=== PATIENT | male | born 1935 | race Caucasian/White ===

== ENCOUNTER 2018-02-08 22:29 | Inpatient (IN) | payer OTHER ==
[2018-02-08] MEDS: LEVALBUTEROL (NEB) 1.25 MG/0.5 ML AMP INH (23:41)
[2018-02-08] MEDS: IPRATROPIUM (NEB) 0.5 MG/2.5 ML AMP NEB (23:41)
[2018-02-08 23:47] LABS: ADD MAN DIFF? NO
[2018-02-08 23:50] LABS: ABNORMAL IP MESSAGE 1; BASOPHIL # 0.1 10^3/ul (0.0-0.1); BASOPHILS % 0.7 % (0.0-2.0); EOSINOPHILS # 0.2 10^3/ul (0.0-0.5); EOSINOPHILS % 1.9 % (0.0-7.0); HEMATOCRIT 38.2 % (42.0-52.0); HEMOGLOBIN 12.7 g/dl (14.0-18.0); LYMPHOCYTES # 1.2 10^3/ul (0.8-2.9); MEAN CORPUSCULAR HEMOGLOBIN 29.1 pg (29.0-33.0); MEAN CORPUSCULAR HGB CONC 33.2 g/dl (32.0-37.0); MEAN CORPUSCULAR VOLUME 87.4 fl (82.0-101.0); MEAN PLATELET VOLUME 12.4 fl (7.4-10.4); MONOCYTE # 1.7 10^3/ul (0.3-0.9); MONOCYTES % 16.1 % (0.0-11.0); NEUTROPHIL # 7.5 10^3/ul (1.6-7.5); NEUTROPHILS % 69.9 % (39.0-77.0); PLATELET COUNT 221 10^3/UL (140-415); POSITIVE DIFF @See below; RED BLOOD COUNT 4.37 10^6/ul (4.70-6.10)
[2018-02-08 23:50] LABS: WHITE BLOOD COUNT 10.7 10^3/ul (4.8-10.8)
[2018-02-08] MEDS: ACETAMINOPHEN 325 MG TAB PO (23:56)
[2018-02-09 00:31] LABS: ALANINE AMINOTRANSFERASE 18 IU/L (13-69); ALBUMIN 3.8 g/dl (3.3-4.9); ALBUMIN/GLOBULIN RATIO 0.88; ALKALINE PHOSPHATASE 69 IU/L (42-121); ANION GAP 15 (8-16); ASPARTATE AMINO TRANSFERASE 22 IU/L (15-46); BILIRUBIN,INDIRECT 0.2 mg/dl (0-1.1); BILIRUBIN,TOTAL 0.2 mg/dl (0.2-1.3); BLOOD UREA NITROGEN 33 mg/dl (7-20); CALCIUM 9.3 mg/dl (8.4-10.2); CARBON DIOXIDE 28 mmol/L (21-31); CHLORIDE 98 mmol/L (97-110); CREATININE 1.62 mg/dl (0.61-1.24); GLUCOSE 105 mg/dl (70-220); POTASSIUM 3.3 mmol/L (3.5-5.1); SODIUM 138 mmol/L (135-144); TOTAL PROTEIN 8.1 g/dl (6.1-8.1)
[2018-02-09 00:32] LABS: LACTIC ACID 1.4 mmol/L (0.5-2.0)
[2018-02-09 00:34] LABS: URINE PH (Dip) POC 5.5 (5.0-8.5)
[2018-02-09 00:34] LABS: URINE BLOOD (Dip) POC 2+ (NEGATIVE); URINE GLUCOSE (Dip) POC Negative (NEGATIVE); URINE KETONES (Dip) POC Negative (NEGATIVE); URINE LEUKOCYTE EST (Dip) POC Negative (NEGATIVE); URINE NITRITE (Dip) POC Negative (NEGATIVE); URINE TOTAL PROTEIN POC Negative (NEGATIVE)
[2018-02-09 00:40] LABS: PROTIME 13.3 Sec (11.9-14.9)
[2018-02-09 00:41] LABS: PARTIAL THROMBOPLASTIN TIME 33.7 Sec (25.0-35.0)
[2018-02-09 00:43] LABS: TROPONIN-I < 0.012 ng/ml (0.00-0.12)
[2018-02-09 01:25] LABS: ADD UMIC YES; UR ASCORBIC ACID NEGATIVE (NEGATIVE); UR BILIRUBIN (Dip) NEGATIVE (NEGATIVE); UR BLOOD (Dip) 2+ mg/dL (NEGATIVE); UR CLARITY CLEAR (CLEAR); UR COLOR YELLOW (YELLOW); UR GLUCOSE (Dip) NEGATIVE (NEGATIVE); UR KETONES (Dip) NEGATIVE (NEGATIVE); UR LEUKOCYTE ESTERASE (Dip) NEGATIVE Leu/ul (NEGATIVE); UR NITRITE (Dip) NEGATIVE (NEGATIVE); UR RBC 12 /HPF (0-5); UR SPECIFIC GRAVITY (Dip) 1.018 (1.003-1.030); UR TOTAL PROTEIN (Dip) NEGATIVE (NEGATIVE); UR UROBILINOGEN (Dip) NEGATIVE (NEGATIVE); UR WBC 0 /HPF (0-5)
[2018-02-09] MEDS: SOD CHLORIDE 0.9% 500 ML IV ×3 (01:47→07:41)
[2018-02-09 02:13] LABS: LACTIC ACID 1.7 mmol/L (0.5-2.0)
[2018-02-09] MEDS: IPRATROPIUM (NEB) 0.5 MG/2.5 ML AMP NEB (02:20)
[2018-02-09] MEDS: LEVALBUTEROL (NEB) 1.25 MG/0.5 ML AMP INH (02:20)
[2018-02-09] MEDS ORDERED: BISACODYL (EC) 5 MG TAB PO (02:30)
[2018-02-09] MEDS ORDERED: NACL 0.9% 3 ML SYG IV (02:30)
[2018-02-09] MEDS ORDERED: ONDANSETRON 4 MG INJ IV (02:30)
[2018-02-09] MEDS ORDERED: DOCUSATE SODIUM 100 MG CAP PO (02:30)
[2018-02-09] MEDS ORDERED: LEVOFLOXACIN 750 MG TABLET PO (02:30)
[2018-02-09] MEDS: POTASSIUM CHLORIDE (SR) 10 MEQ TAB PO (03:36)
[2018-02-09] MEDS: LEVOFLOXACIN 750MG/D5W (PMX) 150 ML IVPB (03:36)
[2018-02-09] MEDS: SOD CHLORIDE 0.9% 1,000 ML IV (03:36)
[2018-02-09 06:11] LABS: ADD MAN DIFF? NO
[2018-02-09 06:13] LABS: BASOPHIL # 0.1 10^3/ul (0.0-0.1); BASOPHILS % 0.7 % (0.0-2.0); EOSINOPHILS % 0.3 % (0.0-7.0); HEMATOCRIT 33.3 % (42.0-52.0); LYMPHOCYTES # 1.1 10^3/ul (0.8-2.9); LYMPHOCYTES % 11.9 % (15.0-51.0); MEAN CORPUSCULAR HEMOGLOBIN 28.9 pg (29.0-33.0); MEAN CORPUSCULAR VOLUME 87.4 fl (82.0-101.0); MEAN PLATELET VOLUME 11.9 fl (7.4-10.4); MONOCYTE # 1.4 10^3/ul (0.3-0.9); MONOCYTES % 15.3 % (0.0-11.0); NEUTROPHIL # 6.3 10^3/ul (1.6-7.5); NEUTROPHILS % 71.3 % (39.0-77.0); PLATELET COUNT 200 10^3/UL (140-415); RED BLOOD COUNT 3.81 10^6/ul (4.70-6.10); RED CELL DISTRIBUTION WIDTH 14.3 % (11.5-14.5)
[2018-02-09 06:13] LABS: WHITE BLOOD COUNT 8.8 10^3/ul (4.8-10.8)
[2018-02-09] MEDS ORDERED: GLUCAGON 1 MG INJ IM (06:30)
[2018-02-09] MEDS ORDERED: DEXTROSE 50% 50 ML SYRINGE IV ×2 (06:30)
[2018-02-09] MEDS ORDERED: GLUCOSE GEL 15 GRAM TUBE PO ×2 (06:30)
[2018-02-09] MEDS ORDERED: GLUCOSE GEL 15 GRAM TUBE BUCCAL (06:30)
[2018-02-09 06:34] LABS: MAGNESIUM 1.3 mg/dl (1.7-2.5)
[2018-02-09 06:36] LABS: LACTIC ACID 3.6 mmol/L (0.5-2.0)
[2018-02-09 06:37] LABS: ALANINE AMINOTRANSFERASE 15 IU/L (13-69); ALBUMIN 3.3 g/dl (3.3-4.9); ALBUMIN/GLOBULIN RATIO 0.89; ALKALINE PHOSPHATASE 53 IU/L (42-121); ANION GAP 18 (8-16); ASPARTATE AMINO TRANSFERASE 18 IU/L (15-46); BILIRUBIN,INDIRECT 0.2 mg/dl (0-1.1); BILIRUBIN,TOTAL 0.2 mg/dl (0.2-1.3); BLOOD UREA NITROGEN 27 mg/dl (7-20); CALCIUM 8.9 mg/dl (8.4-10.2); CARBON DIOXIDE 24 mmol/L (21-31); CHLORIDE 102 mmol/L (97-110); GLUCOSE 109 mg/dl (70-220); POTASSIUM 3.2 mmol/L (3.5-5.1); SODIUM 141 mmol/L (135-144)
[2018-02-09 06:53] LABS: HEMOGLOBIN A1C 5.6 % (0-5.9)
[2018-02-09] MEDS: PANTOPRAZOLE (EC) 40 MG TAB PO (07:01)
[2018-02-09] MEDS: POTASSIUM CHLORIDE (SR) 20 MEQ TAB PO (07:56)
[2018-02-09] MEDS: MAGNESIUM SULFATE 2 GM/50 ML 50 ML IVPB (07:58)
[2018-02-09] MEDS: INSULIN ASPART [NOVOLOG] 3 ML PEN SC ×4 (08:00→20:21)
[2018-02-09] MEDS: LEVALBUTEROL (NEB) 0.63 MG/3 ML AMP HHN ×5 (08:04→19:24)
[2018-02-09] MEDS: ACETYLCYSTEINE 20% 4 ML VIAL NEB (08:06)
[2018-02-09] MEDS: predniSONE 20 MG TAB PO (08:48)
[2018-02-09] MEDS ORDERED: HYDROCHLOROTHIAZIDE 25 MG TAB PO (09:00)
[2018-02-09] MEDS: AZITHROMYCIN 500MG/NS (PMX) 250 ML IVPB (10:47)
[2018-02-09] MEDS: CEFTRIAXONE 1 GM/50 ML (PMX) 50 ML IVPB (11:49)
[2018-02-09] MEDS: GUAIFENESIN/DM 5ML CUP PO (22:46)
[2018-02-10] MEDS: ACCU-CHEK XX (01:20)
[2018-02-10] MEDS: LEVALBUTEROL (NEB) 0.63 MG/3 ML AMP HHN ×6 (02:10→21:00)
[2018-02-10] MEDS: PANTOPRAZOLE (EC) 40 MG TAB PO (06:18)
[2018-02-10] MEDS: INSULIN ASPART [NOVOLOG] 3 ML PEN SC ×4 (08:00→20:10)
[2018-02-10] MEDS: predniSONE 20 MG TAB PO (10:30)
[2018-02-10] MEDS: AZITHROMYCIN 500MG/NS (PMX) 250 ML IVPB (10:31)
[2018-02-10] MEDS: CEFTRIAXONE 1 GM/50 ML (PMX) 50 ML IVPB (11:33)
[2018-02-10] MEDS: GUAIFENESIN/DM 5ML CUP PO ×2 (11:57→20:06)
[2018-02-10] MEDS: ACETAMINOPHEN 325 MG TAB PO (11:57)
[2018-02-10] MEDS: FUROSEMIDE 20 MG INJ IV (14:29)
[2018-02-11] MEDS: ACCU-CHEK XX (01:24)
[2018-02-11] MEDS: LEVALBUTEROL (NEB) 0.63 MG/3 ML AMP HHN ×6 (01:30→19:03)
[2018-02-11] MEDS: GUAIFENESIN/DM 5ML CUP PO ×3 (01:50→17:38)
[2018-02-11] MEDS ORDERED: LEVOFLOXACIN 750MG/D5W (PMX) 150 ML IVPB ×2 (02:30)
[2018-02-11] MEDS: IPRATROPIUM (NEB) 0.5 MG/2.5 ML AMP HHN ×2 (04:22→13:24)
[2018-02-11] MEDS: PANTOPRAZOLE (EC) 40 MG TAB PO (05:22)
[2018-02-11] MEDS: INSULIN ASPART [NOVOLOG] 3 ML PEN SC ×4 (08:00→20:44)
[2018-02-11] MEDS: predniSONE 20 MG TAB PO (08:29)
[2018-02-11] MEDS: CEFTRIAXONE 1 GM/50 ML (PMX) 50 ML IVPB (10:06)
[2018-02-11] MEDS: ACETAMINOPHEN 325 MG TAB PO (10:35)
[2018-02-11] MEDS: AZITHROMYCIN 500MG/NS (PMX) 250 ML IVPB (11:28)
[2018-02-11 12:27] LABS: ADD MAN DIFF? NO
[2018-02-11 12:39] LABS: WHITE BLOOD COUNT 8.6 10^3/ul (4.8-10.8)
[2018-02-11 12:39] LABS: ABNORMAL IP MESSAGE 1; BASOPHILS % 0.4 % (0.0-2.0); HEMATOCRIT 35.8 % (42.0-52.0); LYMPHOCYTES # 0.6 10^3/ul (0.8-2.9); LYMPHOCYTES % 6.7 % (15.0-51.0); MEAN CORPUSCULAR HEMOGLOBIN 29.4 pg (29.0-33.0); MEAN CORPUSCULAR HGB CONC 33.5 g/dl (32.0-37.0); MEAN CORPUSCULAR VOLUME 87.7 fl (82.0-101.0); MEAN PLATELET VOLUME 12.5 fl (7.4-10.4); MONOCYTE # 0.8 10^3/ul (0.3-0.9); MONOCYTES % 9.6 % (0.0-11.0); NEUTROPHIL # 7.1 10^3/ul (1.6-7.5); NEUTROPHILS % 82.9 % (39.0-77.0); PLATELET COUNT 205 10^3/UL (140-415); POSITIVE DIFF @See below; RED BLOOD COUNT 4.08 10^6/ul (4.70-6.10); RED CELL DISTRIBUTION WIDTH 14.6 % (11.5-14.5)
[2018-02-11 12:55] LABS: ALANINE AMINOTRANSFERASE 24 IU/L (13-69); ALBUMIN 3.6 g/dl (3.3-4.9); ALBUMIN/GLOBULIN RATIO 0.83; ALKALINE PHOSPHATASE 54 IU/L (42-121); ANION GAP 19 (8-16); ASPARTATE AMINO TRANSFERASE 62 IU/L (15-46); BLOOD UREA NITROGEN 43 mg/dl (7-20); CALCIUM 9.3 mg/dl (8.4-10.2); CARBON DIOXIDE 25 mmol/L (21-31); CHLORIDE 103 mmol/L (97-110); CREATININE 1.79 mg/dl (0.61-1.24); GLUCOSE 129 mg/dl (70-220); MAGNESIUM 1.5 mg/dl (1.7-2.5); POTASSIUM 3.2 mmol/L (3.5-5.1); SODIUM 144 mmol/L (135-144); TOTAL PROTEIN 7.9 g/dl (6.1-8.1)
[2018-02-11 12:58] LABS: LACTIC ACID 2.4 mmol/L (0.5-2.0)
[2018-02-11] MEDS: METHYLPREDNISOLONE 40 MG INJ IV ×3 (14:32→23:10)
[2018-02-11] MEDS: MAGNESIUM SULFATE 2 GM/50 ML 50 ML IVPB (14:36)
[2018-02-11] MEDS: POTASSIUM CHLORIDE (SR) 20 MEQ TAB PO (17:27)
[2018-02-11] MEDS: POTASSIUM CHLORIDE 10 MEQ in SOD CHLORIDE 0.45% 1,000 ML IV ×2 (17:37→23:13)
[2018-02-11] MEDS: HEPARIN 5,000 UNIT/0.5 ML VIAL SC (20:43)
[2018-02-12] MEDS: LEVALBUTEROL (NEB) 0.63 MG/3 ML AMP HHN ×4 (01:38→19:19)
[2018-02-12] MEDS: ACCU-CHEK XX (02:08)
[2018-02-12] MEDS: POTASSIUM CHLORIDE 10 MEQ in SOD CHLORIDE 0.45% 1,000 ML IV ×3 (03:03→20:09)
[2018-02-12] MEDS: METHYLPREDNISOLONE 40 MG INJ IV ×3 (05:35→20:40)
[2018-02-12] MEDS: PANTOPRAZOLE (EC) 40 MG TAB PO (05:35)
[2018-02-12] MEDS: IPRATROPIUM (NEB) 0.5 MG/2.5 ML AMP HHN ×2 (08:05→14:37)
[2018-02-12] MEDS: INSULIN ASPART [NOVOLOG] 3 ML PEN SC ×4 (08:17→20:40)
[2018-02-12] MEDS: HEPARIN 5,000 UNIT/0.5 ML VIAL SC ×2 (08:17→20:42)
[2018-02-12 09:08] LABS: ADD MAN DIFF? NO
[2018-02-12 09:18] LABS: BASOPHILS % 0.1 % (0.0-2.0); HEMATOCRIT 39.4 % (42.0-52.0); HEMOGLOBIN 12.9 g/dl (14.0-18.0); LYMPHOCYTES # 0.8 10^3/ul (0.8-2.9); LYMPHOCYTES % 6.5 % (15.0-51.0); MEAN CORPUSCULAR HEMOGLOBIN 28.6 pg (29.0-33.0); MEAN CORPUSCULAR HGB CONC 32.7 g/dl (32.0-37.0); MEAN CORPUSCULAR VOLUME 87.4 fl (82.0-101.0); MEAN PLATELET VOLUME 12.2 fl (7.4-10.4); MONOCYTE # 0.6 10^3/ul (0.3-0.9); MONOCYTES % 4.2 % (0.0-11.0); NEUTROPHIL # 11.5 10^3/ul (1.6-7.5); NEUTROPHILS % 88.7 % (39.0-77.0); PLATELET COUNT 208 10^3/UL (140-415); RED BLOOD COUNT 4.51 10^6/ul (4.70-6.10); RED CELL DISTRIBUTION WIDTH 14.6 % (11.5-14.5)
[2018-02-12 09:50] LABS: ANION GAP 15 (8-16); BLOOD UREA NITROGEN 40 mg/dl (7-20); CALCIUM 9.5 mg/dl (8.4-10.2); CARBON DIOXIDE 27 mmol/L (21-31); CHLORIDE 105 mmol/L (97-110); GLUCOSE 168 mg/dl (70-220); POTASSIUM 3.3 mmol/L (3.5-5.1); SODIUM 144 mmol/L (135-144)
[2018-02-12 10:16] LABS: MAGNESIUM 1.9 mg/dl (1.7-2.5)
[2018-02-12] MEDS: CEFTRIAXONE 1 GM/50 ML (PMX) 50 ML IVPB (10:20)
[2018-02-12] MEDS: AZITHROMYCIN 500MG/NS (PMX) 250 ML IVPB (11:42)
[2018-02-12] MEDS: POTASSIUM CHLORIDE (SR) 20 MEQ TAB PO (12:52)
[2018-02-13] MEDS: LEVALBUTEROL (NEB) 0.63 MG/3 ML AMP HHN ×4 (01:36→20:08)
[2018-02-13] MEDS: ACCU-CHEK XX (02:00)
[2018-02-13] MEDS: POTASSIUM CHLORIDE 10 MEQ in SOD CHLORIDE 0.45% 1,000 ML IV ×3 (03:49→16:44)
[2018-02-13] MEDS: METHYLPREDNISOLONE 40 MG INJ IV ×3 (03:56→20:59)
[2018-02-13] MEDS: PANTOPRAZOLE (EC) 40 MG TAB PO (05:22)
[2018-02-13] MEDS: INSULIN ASPART [NOVOLOG] 3 ML PEN SC ×4 (08:25→21:00)
[2018-02-13] MEDS: HEPARIN 5,000 UNIT/0.5 ML VIAL SC ×2 (08:26→20:59)
[2018-02-13] MEDS: AZITHROMYCIN 500MG/NS (PMX) 250 ML IVPB (10:14)
[2018-02-13 10:32] LABS: ADD MAN DIFF? NO
[2018-02-13 10:34] LABS: WHITE BLOOD COUNT 18.9 10^3/ul (4.8-10.8)
[2018-02-13 10:34] LABS: BASOPHILS % 0.1 % (0.0-2.0); HEMATOCRIT 37.9 % (42.0-52.0); HEMOGLOBIN 12.6 g/dl (14.0-18.0); LYMPHOCYTES # 1.1 10^3/ul (0.8-2.9); LYMPHOCYTES % 5.7 % (15.0-51.0); MEAN CORPUSCULAR HEMOGLOBIN 29.1 pg (29.0-33.0); MEAN CORPUSCULAR HGB CONC 33.2 g/dl (32.0-37.0); MEAN CORPUSCULAR VOLUME 87.5 fl (82.0-101.0); MEAN PLATELET VOLUME 12.9 fl (7.4-10.4); MONOCYTE # 0.6 10^3/ul (0.3-0.9); MONOCYTES % 3.4 % (0.0-11.0); NEUTROPHIL # 17.1 10^3/ul (1.6-7.5); NEUTROPHILS % 90.3 % (39.0-77.0); PLATELET COUNT 220 10^3/UL (140-415); RED BLOOD COUNT 4.33 10^6/ul (4.70-6.10); RED CELL DISTRIBUTION WIDTH 14.6 % (11.5-14.5)
[2018-02-13 11:08] LABS: ANION GAP 18 (8-16); BLOOD UREA NITROGEN 40 mg/dl (7-20); CALCIUM 9.4 mg/dl (8.4-10.2); CARBON DIOXIDE 22 mmol/L (21-31); CHLORIDE 105 mmol/L (97-110); CREATININE 1.37 mg/dl (0.61-1.24); GLUCOSE 146 mg/dl (70-220); POTASSIUM 3.1 mmol/L (3.5-5.1); SODIUM 142 mmol/L (135-144)
[2018-02-13] MEDS: CEFTRIAXONE 1 GM/50 ML (PMX) 50 ML IVPB (11:34)
[2018-02-13] MEDS: POTASSIUM CHLORIDE (SR) 20 MEQ TAB PO (13:37)
[2018-02-14] MEDS: LEVALBUTEROL (NEB) 0.63 MG/3 ML AMP HHN ×4 (01:06→20:50)
[2018-02-14] MEDS: ACCU-CHEK XX (02:00)
[2018-02-14] MEDS: POTASSIUM CHLORIDE 10 MEQ in SOD CHLORIDE 0.45% 1,000 ML IV ×3 (03:13→22:24)
[2018-02-14] MEDS: METHYLPREDNISOLONE 40 MG INJ IV ×3 (05:40→20:43)
[2018-02-14] MEDS: PANTOPRAZOLE (EC) 40 MG TAB PO (05:40)
[2018-02-14] MEDS: INSULIN ASPART [NOVOLOG] 3 ML PEN SC ×4 (08:00→20:43)
[2018-02-14] MEDS: HEPARIN 5,000 UNIT/0.5 ML VIAL SC ×2 (08:20→20:44)
[2018-02-14] MEDS: AZITHROMYCIN 500MG/NS (PMX) 250 ML IVPB (09:46)
[2018-02-14] MEDS: CEFTRIAXONE 1 GM/50 ML (PMX) 50 ML IVPB (11:17)
[2018-02-15] MEDS: ACCU-CHEK XX (02:00)
[2018-02-15] MEDS: LEVALBUTEROL (NEB) 0.63 MG/3 ML AMP HHN ×4 (02:36→19:45)
[2018-02-15] MEDS: METHYLPREDNISOLONE 40 MG INJ IV ×3 (03:10→22:15)
[2018-02-15] MEDS: POTASSIUM CHLORIDE 10 MEQ in SOD CHLORIDE 0.45% 1,000 ML IV ×3 (05:32→18:30)
[2018-02-15] MEDS: PANTOPRAZOLE (EC) 40 MG TAB PO (05:32)
[2018-02-15] MEDS: INSULIN ASPART [NOVOLOG] 3 ML PEN SC ×4 (08:31→21:00)
[2018-02-15] MEDS: HEPARIN 5,000 UNIT/0.5 ML VIAL SC ×2 (08:32→22:17)
[2018-02-15] MEDS: CEFTRIAXONE 1 GM/50 ML (PMX) 50 ML IVPB (11:24)
[2018-02-15] MEDS: AZITHROMYCIN 500MG/NS (PMX) 250 ML IVPB (11:24)
[2018-02-15] MEDS: GUAIFENESIN/DM 5ML CUP PO (12:19)
[2018-02-16] MEDS: ACCU-CHEK XX (02:00)
[2018-02-16] MEDS: LEVALBUTEROL (NEB) 0.63 MG/3 ML AMP HHN ×2 (02:04→08:00)
[2018-02-16] MEDS: METHYLPREDNISOLONE 40 MG INJ IV ×3 (04:53→21:11)
[2018-02-16] MEDS: PANTOPRAZOLE (EC) 40 MG TAB PO (04:53)
[2018-02-16] MEDS: POTASSIUM CHLORIDE 10 MEQ in SOD CHLORIDE 0.45% 1,000 ML IV ×2 (04:53→17:32)
[2018-02-16 07:48] LABS: ADD MAN DIFF? NO
[2018-02-16] MEDS: INSULIN ASPART [NOVOLOG] 3 ML PEN SC ×4 (07:54→21:00)
[2018-02-16 07:57] LABS: BASOPHILS % 0.1 % (0.0-2.0); HEMATOCRIT 34.9 % (42.0-52.0); HEMOGLOBIN 11.7 g/dl (14.0-18.0); LYMPHOCYTES # 0.8 10^3/ul (0.8-2.9); LYMPHOCYTES % 6.4 % (15.0-51.0); MEAN CORPUSCULAR HEMOGLOBIN 28.6 pg (29.0-33.0); MEAN CORPUSCULAR HGB CONC 33.5 g/dl (32.0-37.0); MEAN CORPUSCULAR VOLUME 85.3 fl (82.0-101.0); MEAN PLATELET VOLUME 12.4 fl (7.4-10.4); MONOCYTE # 0.7 10^3/ul (0.3-0.9); MONOCYTES % 5.2 % (0.0-11.0); NEUTROPHIL # 11.5 10^3/ul (1.6-7.5); NEUTROPHILS % 86.7 % (39.0-77.0); PLATELET COUNT 205 10^3/UL (140-415); RED BLOOD COUNT 4.09 10^6/ul (4.70-6.10)
[2018-02-16 07:57] LABS: WHITE BLOOD COUNT 13.2 10^3/ul (4.8-10.8)
[2018-02-16 08:16] LABS: ANION GAP 13 (8-16); BLOOD UREA NITROGEN 40 mg/dl (7-20); CALCIUM 9.1 mg/dl (8.4-10.2); CARBON DIOXIDE 28 mmol/L (21-31); CHLORIDE 106 mmol/L (97-110); CREATININE 1.18 mg/dl (0.61-1.24); GLUCOSE 142 mg/dl (70-220); POTASSIUM 3.6 mmol/L (3.5-5.1); SODIUM 143 mmol/L (135-144)
[2018-02-16] MEDS: ALBUTEROL/IPRATROPIUM (NEB) 3 ML AMP HHN ×3 (08:16→21:00)
[2018-02-16] MEDS: HEPARIN 5,000 UNIT/0.5 ML VIAL SC ×2 (09:07→21:24)
[2018-02-16] MEDS: GUAIFENESIN/DM 5ML CUP PO (09:07)
[2018-02-16] MEDS: AZITHROMYCIN 500MG/NS (PMX) 250 ML IVPB (10:36)
[2018-02-16] MEDS: SALMETEROL/FLUTICASONE 250/50 INHA INH ×2 (10:36→21:09)
[2018-02-16] MEDS: GUAIFENESIN LA 600 MG TABSR PO ×2 (10:36→21:11)
[2018-02-16] MEDS: CEFTRIAXONE 1 GM/50 ML (PMX) 50 ML IVPB (13:42)
[2018-02-17] MEDS: ALBUTEROL/IPRATROPIUM (NEB) 3 ML AMP HHN ×4 (01:30→20:26)
[2018-02-17] MEDS: ACCU-CHEK XX (02:00)
[2018-02-17] MEDS: POTASSIUM CHLORIDE 10 MEQ in SOD CHLORIDE 0.45% 1,000 ML IV ×3 (03:00→17:50)
[2018-02-17] MEDS: METHYLPREDNISOLONE 40 MG INJ IV ×3 (05:00→20:59)
[2018-02-17] MEDS: PANTOPRAZOLE (EC) 40 MG TAB PO (06:07)
[2018-02-17 06:52] LABS: ADD MAN DIFF? NO
[2018-02-17 06:59] LABS: BASOPHILS % 0.2 % (0.0-2.0); HEMATOCRIT 35.8 % (42.0-52.0); HEMOGLOBIN 12.1 g/dl (14.0-18.0); LYMPHOCYTES # 0.8 10^3/ul (0.8-2.9); MEAN CORPUSCULAR HEMOGLOBIN 28.7 pg (29.0-33.0); MEAN CORPUSCULAR HGB CONC 33.8 g/dl (32.0-37.0); MEAN CORPUSCULAR VOLUME 84.8 fl (82.0-101.0); MEAN PLATELET VOLUME 12.7 fl (7.4-10.4); MONOCYTE # 0.8 10^3/ul (0.3-0.9); MONOCYTES % 5.9 % (0.0-11.0); NEUTROPHIL # 11.6 10^3/ul (1.6-7.5); NEUTROPHILS % 85.7 % (39.0-77.0); PLATELET COUNT 215 10^3/UL (140-415); RED BLOOD COUNT 4.22 10^6/ul (4.70-6.10)
[2018-02-17 06:59] LABS: WHITE BLOOD COUNT 13.6 10^3/ul (4.8-10.8)
[2018-02-17 07:24] LABS: ANION GAP 14 (8-16); BLOOD UREA NITROGEN 37 mg/dl (7-20); CALCIUM 9.1 mg/dl (8.4-10.2); CARBON DIOXIDE 25 mmol/L (21-31); CHLORIDE 104 mmol/L (97-110); CREATININE 1.13 mg/dl (0.61-1.24); GLUCOSE 157 mg/dl (70-220); POTASSIUM 3.2 mmol/L (3.5-5.1); SODIUM 140 mmol/L (135-144)
[2018-02-17] MEDS: SALMETEROL/FLUTICASONE 250/50 INHA INH ×2 (08:11→20:59)
[2018-02-17] MEDS: GUAIFENESIN LA 600 MG TABSR PO ×2 (08:11→21:00)
[2018-02-17] MEDS: INSULIN ASPART [NOVOLOG] 3 ML PEN SC ×4 (08:12→21:00)
[2018-02-17] MEDS: HEPARIN 5,000 UNIT/0.5 ML VIAL SC ×2 (08:13→21:04)
[2018-02-17] MEDS: AZITHROMYCIN 500MG/NS (PMX) 250 ML IVPB (10:25)
[2018-02-17] MEDS: CEFTRIAXONE 1 GM/50 ML (PMX) 50 ML IVPB (12:11)
[2018-02-17] MEDS: POTASSIUM CHLORIDE (SR) 20 MEQ TAB PO (17:43)
[2018-02-18] MEDS: ALBUTEROL/IPRATROPIUM (NEB) 3 ML AMP HHN ×4 (01:47→19:56)
[2018-02-18] MEDS: ACCU-CHEK XX (02:00)
[2018-02-18] MEDS: GUAIFENESIN/DM 5ML CUP PO (04:04)
[2018-02-18] MEDS: METHYLPREDNISOLONE 40 MG INJ IV ×3 (04:05→20:00)
[2018-02-18] MEDS: IPRATROPIUM (NEB) 0.5 MG/2.5 ML AMP HHN (04:11)
[2018-02-18] MEDS: PANTOPRAZOLE (EC) 40 MG TAB PO (05:28)
[2018-02-18] MEDS: POTASSIUM CHLORIDE 10 MEQ in SOD CHLORIDE 0.45% 1,000 ML IV (06:23)
[2018-02-18 08:05] LABS: WHITE BLOOD COUNT 13.8 10^3/ul (4.8-10.8)
[2018-02-18 08:05] LABS: ABNORMAL IP MESSAGE 1; HEMATOCRIT 35.1 % (42.0-52.0); HEMOGLOBIN 11.8 g/dl (14.0-18.0); MEAN CORPUSCULAR HEMOGLOBIN 28.5 pg (29.0-33.0); MEAN CORPUSCULAR HGB CONC 33.6 g/dl (32.0-37.0); MEAN CORPUSCULAR VOLUME 84.8 fl (82.0-101.0); MEAN PLATELET VOLUME 12.9 fl (7.4-10.4); PLATELET COUNT 148 10^3/UL (140-415); POSITIVE DIFF @See below; RED BLOOD COUNT 4.14 10^6/ul (4.70-6.10); RED CELL DISTRIBUTION WIDTH 14.5 % (11.5-14.5)
[2018-02-18 08:07] LABS: ADD MAN DIFF? YES
[2018-02-18] MEDS: INSULIN ASPART [NOVOLOG] 3 ML PEN SC ×4 (08:22→21:00)
[2018-02-18] MEDS: HEPARIN 5,000 UNIT/0.5 ML VIAL SC ×2 (08:22→21:22)
[2018-02-18] MEDS: SALMETEROL/FLUTICASONE 250/50 INHA INH ×2 (08:23→21:00)
[2018-02-18] MEDS: GUAIFENESIN LA 600 MG TABSR PO ×2 (08:23→21:26)
[2018-02-18 08:33] LABS: ANION GAP 14 (8-16); BLOOD UREA NITROGEN 40 mg/dl (7-20); CALCIUM 8.8 mg/dl (8.4-10.2); CARBON DIOXIDE 28 mmol/L (21-31); CHLORIDE 102 mmol/L (97-110); CREATININE 1.08 mg/dl (0.61-1.24); GLUCOSE 162 mg/dl (70-220); POTASSIUM 3.4 mmol/L (3.5-5.1); SODIUM 141 mmol/L (135-144)
[2018-02-18 10:02] LABS: BAND NEUTROPHILS #M 0.1 10^3/ul (0.0-0.6); BAND NEUTROPHILS % (M) 1 % (0-4); GIANT THROMBO% (M) 1 % (0-0); LYMPHOCYTES #M 1.1 10^3/ul (0.8-2.9); LYMPHOCYTES % (M) 8 % (15-51); MONOCYTE #M 2.2 10^3/ul (0.3-0.9); MONOCYTES % (M) 16 % (0-11); PLATELET ESTIMATE NORMAL; SEG NEUT #M 10.4 10^3/ul (1.6-7.5); SEGMENTED NEUTROPHILS (M) % 75 % (39-77); SMUDGE%M 13 % (0-0)
[2018-02-18] MEDS: CEFTRIAXONE 1 GM/50 ML (PMX) 50 ML IVPB (10:20)
[2018-02-18] MEDS: AZITHROMYCIN 500MG/NS (PMX) 250 ML IVPB (10:59)
[2018-02-18] MEDS: POTASSIUM CHLORIDE (SR) 20 MEQ TAB PO (16:07)
[2018-02-19] MEDS: ACCU-CHEK XX (01:41)
[2018-02-19] MEDS: ALBUTEROL/IPRATROPIUM (NEB) 3 ML AMP HHN ×3 (01:42→20:00)
[2018-02-19] MEDS: METHYLPREDNISOLONE 40 MG INJ IV ×3 (04:14→22:37)
[2018-02-19] MEDS: PANTOPRAZOLE (EC) 40 MG TAB PO (05:52)
[2018-02-19] MEDS: INSULIN ASPART [NOVOLOG] 3 ML PEN SC ×4 (08:00→20:51)
[2018-02-19] MEDS: HEPARIN 5,000 UNIT/0.5 ML VIAL SC ×2 (08:25→20:52)
[2018-02-19] MEDS: GUAIFENESIN LA 600 MG TABSR PO ×2 (08:25→22:37)
[2018-02-19] MEDS: SALMETEROL/FLUTICASONE 250/50 INHA INH ×2 (08:29→20:48)
[2018-02-19 09:45] LABS: ADD MAN DIFF? NO
[2018-02-19 09:50] LABS: WHITE BLOOD COUNT 15.1 10^3/ul (4.8-10.8)
[2018-02-19 09:50] LABS: ABNORMAL IP MESSAGE 1; BASOPHILS % 0.1 % (0.0-2.0); HEMATOCRIT 38.5 % (42.0-52.0); LYMPHOCYTES # 0.4 10^3/ul (0.8-2.9); LYMPHOCYTES % 2.6 % (15.0-51.0); MEAN CORPUSCULAR HEMOGLOBIN 28.7 pg (29.0-33.0); MEAN CORPUSCULAR HGB CONC 33.8 g/dl (32.0-37.0); MEAN PLATELET VOLUME 12.5 fl (7.4-10.4); MONOCYTE # 0.6 10^3/ul (0.3-0.9); MONOCYTES % 3.7 % (0.0-11.0); NEUTROPHIL # 13.7 10^3/ul (1.6-7.5); NEUTROPHILS % 90.6 % (39.0-77.0); PLATELET COUNT 189 10^3/UL (140-415); POSITIVE DIFF @See below; RED BLOOD COUNT 4.53 10^6/ul (4.70-6.10); RED CELL DISTRIBUTION WIDTH 14.3 % (11.5-14.5)
[2018-02-19 10:13] LABS: CREATINE KINASE 92 IU/L (23-200)
[2018-02-19 10:19] LABS: CHOLESTEROL 150 mg/dl (100-200); HDL CHOLESTEROL 72 mg/dl (31-75); LDL CHOLESTEROL,CALCULATED 63 mg/dl; MAGNESIUM 1.4 mg/dl (1.7-2.5); TRIGLYCERIDES 77 mg/dl (0-149)
[2018-02-19 10:23] LABS: B-TYPE NATRIURETIC PEPTIDE 3580 PG/ML (0-450)
[2018-02-19 10:24] LABS: CK INDEX 3.7; TROPONIN-I 0.038 ng/ml (0.00-0.12)
[2018-02-19 10:29] LABS: FREE T4 (FREE THYROXINE) 1.84 ng/dl (0.85-1.93)
[2018-02-19] MEDS: AZITHROMYCIN 500MG/NS (PMX) 250 ML IVPB (10:35)
[2018-02-19 10:40] LABS: ANION GAP 15 (8-16); BLOOD UREA NITROGEN 42 mg/dl (7-20); CALCIUM 9.2 mg/dl (8.4-10.2); CARBON DIOXIDE 27 mmol/L (21-31); CHLORIDE 103 mmol/L (97-110); CREATININE 1.19 mg/dl (0.61-1.24); GLUCOSE 174 mg/dl (70-220); POTASSIUM 3.7 mmol/L (3.5-5.1); SODIUM 141 mmol/L (135-144)
[2018-02-19 10:41] LABS: ALANINE AMINOTRANSFERASE 38 IU/L (13-69); ALBUMIN 2.8 g/dl (3.3-4.9); ALBUMIN/GLOBULIN RATIO 0.82; ALKALINE PHOSPHATASE 57 IU/L (42-121); ANION GAP 16 (8-16); ASPARTATE AMINO TRANSFERASE 21 IU/L (15-46); BILIRUBIN,INDIRECT 0.7 mg/dl (0-1.1); BILIRUBIN,TOTAL 0.7 mg/dl (0.2-1.3); BLOOD UREA NITROGEN 43 mg/dl (7-20); CARBON DIOXIDE 25 mmol/L (21-31); CHLORIDE 103 mmol/L (97-110); CREATININE 1.14 mg/dl (0.61-1.24); GLUCOSE 180 mg/dl (70-220); POTASSIUM 3.8 mmol/L (3.5-5.1); SODIUM 140 mmol/L (135-144); TOTAL PROTEIN 6.2 g/dl (6.1-8.1)
[2018-02-19] MEDS: CEFTRIAXONE 1 GM/50 ML (PMX) 50 ML IVPB (11:40)
[2018-02-19] MEDS: MAGNESIUM SULFATE 3 GM in DEXTROSE 5% 100 ML IVPB (14:58)
[2018-02-19] MEDS ORDERED: MAGNESIUM SULFATE 4 GM/100 ML 100 ML IVPB (16:30)
[2018-02-19] MEDS: POTASSIUM CHLORIDE (SR) 20 MEQ TAB PO (16:40)
[2018-02-19] MEDS: MAGNESIUM SULFATE 1 GM/D5W 100 ML IVPB (19:01)
[2018-02-19] MEDS: GUAIFENESIN/DM 5ML CUP PO (20:48)
[2018-02-19] MEDS: CEFEPIME 1GM/50 ML (PMX) 50 ML IVPB (20:49)
[2018-02-20] MEDS: ACCU-CHEK XX (02:00)
[2018-02-20] MEDS: ALBUTEROL/IPRATROPIUM (NEB) 3 ML AMP HHN ×4 (02:31→21:04)
[2018-02-20] MEDS: PANTOPRAZOLE (EC) 40 MG TAB PO (05:21)
[2018-02-20] MEDS: METHYLPREDNISOLONE 40 MG INJ IV ×3 (05:21→21:37)
[2018-02-20] MEDS: GUAIFENESIN/DM 5ML CUP PO (05:40)
[2018-02-20] MEDS: INSULIN ASPART [NOVOLOG] 3 ML PEN SC ×4 (08:00→20:39)
[2018-02-20] MEDS: SALMETEROL/FLUTICASONE 250/50 INHA INH ×2 (08:18→20:26)
[2018-02-20] MEDS: GUAIFENESIN LA 600 MG TABSR PO ×2 (08:18→20:40)
[2018-02-20] MEDS: CEFEPIME 1GM/50 ML (PMX) 50 ML IVPB ×2 (08:19→20:37)
[2018-02-20] MEDS: HEPARIN 5,000 UNIT/0.5 ML VIAL SC ×2 (08:20→20:38)
[2018-02-20 08:50] LABS: ADD MAN DIFF? NO
[2018-02-20 08:55] LABS: ABNORMAL IP MESSAGE 1; BASOPHILS % 0.1 % (0.0-2.0); HEMATOCRIT 37.5 % (42.0-52.0); HEMOGLOBIN 12.7 g/dl (14.0-18.0); LYMPHOCYTES # 0.5 10^3/ul (0.8-2.9); LYMPHOCYTES % 3.1 % (15.0-51.0); MEAN CORPUSCULAR HEMOGLOBIN 28.7 pg (29.0-33.0); MEAN CORPUSCULAR HGB CONC 33.9 g/dl (32.0-37.0); MEAN CORPUSCULAR VOLUME 84.7 fl (82.0-101.0); MEAN PLATELET VOLUME 12.8 fl (7.4-10.4); MONOCYTES % 6.7 % (0.0-11.0); NEUTROPHIL # 13.1 10^3/ul (1.6-7.5); NEUTROPHILS % 87.6 % (39.0-77.0); PLATELET COUNT 191 10^3/UL (140-415); POSITIVE DIFF @See below; RED BLOOD COUNT 4.43 10^6/ul (4.70-6.10); RED CELL DISTRIBUTION WIDTH 14.2 % (11.5-14.5)
[2018-02-20 09:24] LABS: ANION GAP 14 (8-16); BLOOD UREA NITROGEN 47 mg/dl (7-20); CALCIUM 8.8 mg/dl (8.4-10.2); CARBON DIOXIDE 28 mmol/L (21-31); CHLORIDE 101 mmol/L (97-110); CREATININE 1.14 mg/dl (0.61-1.24); GLUCOSE 146 mg/dl (70-220); POTASSIUM 3.5 mmol/L (3.5-5.1); SODIUM 139 mmol/L (135-144)
[2018-02-20 09:27] LABS: PHOSPHORUS 4.2 mg/dl (2.5-4.9)
[2018-02-20 09:37] LABS: FREE T4 (FREE THYROXINE) 1.62 ng/dl (0.85-1.93)
[2018-02-20 09:53] LABS: THYROID STIMULATING HORMONE 0.076 MIU/L (0.465-4.680)
[2018-02-20 15:58] LABS: Allen Test ACCEPTAB; Arterial Base Excess -0.1 mmol/L (-3.0-3); Arterial Blood Gas Oxygen Sat 95.5 mmHG (95.0-100.0); Arterial COHb 0.1 % (0.0-3.0); Arterial HCO3 22.4 mmol/L (22.0-26.0); Arterial MetHb 0.4 % (0.0-1.5); Arterial Total Hemglobin 13.8 g/dl (12.0-18.0); Arterial pCO2 30.8 mmhg (35-45); MODE ROOM AIR; Site Left Radial
[2018-02-21] MEDS: ACCU-CHEK XX (02:00)
[2018-02-21] MEDS: ALBUTEROL/IPRATROPIUM (NEB) 3 ML AMP HHN ×3 (02:16→14:07)
[2018-02-21] MEDS: PANTOPRAZOLE (EC) 40 MG TAB PO (05:28)
[2018-02-21] MEDS: METHYLPREDNISOLONE 40 MG INJ IV (05:28)
[2018-02-21 05:44] LABS: ADD MAN DIFF? NO
[2018-02-21 05:47] LABS: WHITE BLOOD COUNT 13.2 10^3/ul (4.8-10.8)
[2018-02-21 05:47] LABS: ABNORMAL IP MESSAGE 1; BASOPHILS % 0.2 % (0.0-2.0); HEMATOCRIT 35.3 % (42.0-52.0); HEMOGLOBIN 12.2 g/dl (14.0-18.0); LYMPHOCYTES # 0.3 10^3/ul (0.8-2.9); LYMPHOCYTES % 2.2 % (15.0-51.0); MEAN CORPUSCULAR HEMOGLOBIN 29.2 pg (29.0-33.0); MEAN CORPUSCULAR HGB CONC 34.6 g/dl (32.0-37.0); MEAN CORPUSCULAR VOLUME 84.4 fl (82.0-101.0); MEAN PLATELET VOLUME 12.5 fl (7.4-10.4); MONOCYTE # 0.5 10^3/ul (0.3-0.9); MONOCYTES % 3.7 % (0.0-11.0); NEUTROPHIL # 12.1 10^3/ul (1.6-7.5); NEUTROPHILS % 91.9 % (39.0-77.0); PLATELET COUNT 174 10^3/UL (140-415); POSITIVE DIFF @See below; RED BLOOD COUNT 4.18 10^6/ul (4.70-6.10); RED CELL DISTRIBUTION WIDTH 14.5 % (11.5-14.5)
[2018-02-21 06:15] LABS: ALANINE AMINOTRANSFERASE 37 IU/L (13-69); ALBUMIN 2.4 g/dl (3.3-4.9); ALKALINE PHOSPHATASE 51 IU/L (42-121); ANION GAP 11 (8-16); ASPARTATE AMINO TRANSFERASE 17 IU/L (15-46); BILIRUBIN,INDIRECT 0.8 mg/dl (0-1.1); BILIRUBIN,TOTAL 0.8 mg/dl (0.2-1.3); BLOOD UREA NITROGEN 48 mg/dl (7-20); CALCIUM 8.5 mg/dl (8.4-10.2); CARBON DIOXIDE 29 mmol/L (21-31); CHLORIDE 104 mmol/L (97-110); CREATININE 1.21 mg/dl (0.61-1.24); GLUCOSE 167 mg/dl (70-220); MAGNESIUM 1.7 mg/dl (1.7-2.5); POTASSIUM 3.9 mmol/L (3.5-5.1); SODIUM 140 mmol/L (135-144); TOTAL PROTEIN 5.4 g/dl (6.1-8.1)
[2018-02-21 06:21] LABS: FREE T4 (FREE THYROXINE) 1.42 ng/dl (0.85-1.93)
[2018-02-21 07:52] LABS: FREE T3 2.82 pg/ml (2.77-5.27)
[2018-02-21] MEDS: INSULIN ASPART [NOVOLOG] 3 ML PEN SC ×3 (08:00→18:05)
[2018-02-21] MEDS: SALMETEROL/FLUTICASONE 250/50 INHA INH (08:30)
[2018-02-21] MEDS: GUAIFENESIN LA 600 MG TABSR PO (08:30)
[2018-02-21] MEDS: CEFEPIME 1GM/50 ML (PMX) 50 ML IVPB (08:30)
[2018-02-21] MEDS: HEPARIN 5,000 UNIT/0.5 ML VIAL SC (08:31)
[2018-02-21] MEDS: POTASSIUM CHLORIDE (SR) 20 MEQ TAB PO (12:21)
[2018-02-21] MEDS: MAGNESIUM SULFATE 3 GM in DEXTROSE 5% 100 ML IVPB (13:02)
[2018-02-21] MEDS ORDERED: METHYLPREDNISOLONE 40 MG INJ IV (21:00)
== END 2018-02-21 19:40 | disposition home health service (06) | DRG 871 ==
LOC: E/R 22:29 → MS4 02-10 17:10
DX: A41.9 Sepsis, unspecified organism (principal); J96.21 Acute and chronic respiratory failure with hypoxia; J96.01 Acute respiratory failure with hypoxia; J44.1 Chronic obstructive pulmonary disease with (acute) exacerbation; J45.901 Unspecified asthma with (acute) exacerbation; E87.2 Acidosis; N17.9 Acute kidney failure, unspecified; J44.0 Chronic obstructive pulmonary disease with (acute) lower respiratory infection; R65.20 Severe sepsis without septic shock; J20.9 Acute bronchitis, unspecified; E86.0 Dehydration; E11.9 Type 2 diabetes mellitus without complications; E87.6 Hypokalemia; E83.42 Hypomagnesemia; E07.9 Disorder of thyroid, unspecified; N40.0 Benign prostatic hyperplasia without lower urinary tract symptoms; I10 Essential (primary) hypertension; I48.0 Paroxysmal atrial fibrillation; I27.20 Pulmonary hypertension, unspecified; D64.9 Anemia, unspecified; D69.6 Thrombocytopenia, unspecified; R79.89 Other specified abnormal findings of blood chemistry
CPT/HCPCS: 36415; 36600; 71045; 71046; 71250; 80048; 80053; 80061; 81001; 81003; 82550; 82553; 82803; 82962; 83036; 83605; 83735; 83880; 84100; 84439; 84443; 84481; 84484; 85025; 85610; 85730; 87040; 87086; 93005; 93306; 94640; 94664; 94667; 94668; 96365; 96366; 97110; 97116; 97162; 97530; 99285-25

== ENCOUNTER 2018-12-13 21:15 | Emergency (ER) | payer OTHER ==
[2018-12-13 23:52] LABS: ADD MAN DIFF? NO
[2018-12-13 23:53] LABS: BASOPHILS % 0.3 % (0.0-2.0); EOSINOPHILS # 0.3 10^3/ul (0.0-0.5); EOSINOPHILS % 2.6 % (0.0-7.0); HEMATOCRIT 41.8 % (42.0-52.0); HEMOGLOBIN 13.4 g/dl (14.0-18.0); LYMPHOCYTES # 0.8 10^3/ul (0.8-2.9); LYMPHOCYTES % 7.2 % (15.0-51.0); MEAN CORPUSCULAR HEMOGLOBIN 29.5 pg (29.0-33.0); MEAN CORPUSCULAR HGB CONC 32.1 g/dl (32.0-37.0); MEAN CORPUSCULAR VOLUME 91.9 fl (82.0-101.0); MONOCYTE # 1.4 10^3/ul (0.3-0.9); MONOCYTES % 12.6 % (0.0-11.0); NEUTROPHIL # 8.3 10^3/ul (1.6-7.5); NEUTROPHILS % 76.7 % (39.0-77.0); PLATELET COUNT 225 10^3/UL (140-415); RED BLOOD COUNT 4.55 10^6/ul (4.70-6.10); RED CELL DISTRIBUTION WIDTH 14.5 % (11.5-14.5)
[2018-12-13 23:53] LABS: WHITE BLOOD COUNT 10.8 10^3/ul (4.8-10.8)
[2018-12-14] MEDS: SODIUM CHLORIDE 0.9% 1L BAG IV* (00:01)
[2018-12-14] MEDS: AZITHROMYCIN 500MG/NS (PMX) 250 ML IVPB (00:01)
[2018-12-14] MEDS: METHYLPREDNISOLONE 125 MG INJ IV (00:01)
[2018-12-14] MEDS: CEFTRIAXONE 1 GM INJ IM (00:01)
[2018-12-14] MEDS: IPRATROPIUM (NEB) 0.5 MG/2.5 ML AMP INH (00:05)
[2018-12-14] MEDS: ALBUTEROL 0.5% (NEB) 2.5 MG/0.5 ML AMP INH (00:05)
[2018-12-14 00:13] LABS: INR 0.97
[2018-12-14 00:14] LABS: PARTIAL THROMBOPLASTIN TIME 29.8 Sec (23.0-35.0)
[2018-12-14 00:26] LABS: ALANINE AMINOTRANSFERASE 21 IU/L (13-69); ALBUMIN 3.9 g/dl (3.3-4.9); ALBUMIN/GLOBULIN RATIO 1.14; ALKALINE PHOSPHATASE 77 IU/L (42-121); ANION GAP 9 (5-13); ASPARTATE AMINO TRANSFERASE 22 IU/L (15-46); BILIRUBIN,INDIRECT 0.2 mg/dl (0-1.1); BILIRUBIN,TOTAL 0.2 mg/dl (0.2-1.3); BLOOD UREA NITROGEN 18 mg/dl (7-20); CALCIUM 9.3 mg/dl (8.4-10.2); CARBON DIOXIDE 25 mmol/L (21-31); CHLORIDE 102 mmol/L (97-110); GLUCOSE 112 mg/dl (70-220); POTASSIUM 3.6 mmol/L (3.5-5.1); SODIUM 136 mmol/L (135-144); TOTAL PROTEIN 7.3 g/dl (6.1-8.1)
[2018-12-14 00:37] LABS: TROPONIN-I < 0.012 ng/ml (0.000-0.120)
[2018-12-14 01:48] LABS: ADD UMIC YES; UR ASCORBIC ACID NEGATIVE (NEGATIVE); UR BILIRUBIN (Dip) NEGATIVE (NEGATIVE); UR BLOOD (Dip) 2+ mg/dL (NEGATIVE); UR CLARITY CLEAR (CLEAR); UR COLOR YELLOW (YELLOW); UR GLUCOSE (Dip) NEGATIVE (NEGATIVE); UR KETONES (Dip) NEGATIVE (NEGATIVE); UR LEUKOCYTE ESTERASE (Dip) NEGATIVE Leu/ul (NEGATIVE); UR NITRITE (Dip) NEGATIVE (NEGATIVE); UR RBC 2 /HPF (0-5); UR SPECIFIC GRAVITY (Dip) 1.012 (1.003-1.030); UR TOTAL PROTEIN (Dip) NEGATIVE (NEGATIVE); UR UROBILINOGEN (Dip) NEGATIVE (NEGATIVE); UR WBC 1 /HPF (0-5)
== END 2018-12-14 03:36 | disposition home or self-care (01) ==
LOC: E/R 12-14 03:36
DX: J44.9 Chronic obstructive pulmonary disease, unspecified (principal); R00.0 Tachycardia, unspecified; N18.9 Chronic kidney disease, unspecified; D64.9 Anemia, unspecified; J06.9 Acute upper respiratory infection, unspecified; J45.909 Unspecified asthma, uncomplicated; I12.9 Hypertensive chronic kidney disease with stage 1 through stage 4 chronic kidney disease, or unspecified chronic kidney disease
CPT/HCPCS: 36415; 71045; 80053; 81001; 83605; 84484; 85025; 85610; 85730; 87040; 87086; 93005; 96372; 96374; 96375; 99285-25

== ENCOUNTER 2018-12-18 18:32 | Emergency (ER) | payer SELFPAY, OTHER | END 2018-12-18 23:38 | disposition left against medical advice (07) | LOC: E/R 18:32 | DX: Z53.21 Procedure and treatment not carried out due to patient leaving prior to being seen by health care provider (principal) ==

== ENCOUNTER 2018-12-25 08:23 | Observation (INO) | payer OTHER ==
[2018-12-25] MEDS ORDERED: NACL 0.9% 3 ML SYG IV (10:00)
[2018-12-25] MEDS ORDERED: GLUCOSE GEL 15 GRAM TUBE BUCCAL (10:30)
[2018-12-25] MEDS ORDERED: DEXTROSE 50% 50 ML SYRINGE IV ×2 (10:30)
[2018-12-25] MEDS ORDERED: GLUCAGON 1 MG INJ IM (10:30)
[2018-12-25] MEDS ORDERED: GLUCOSE GEL 15 GRAM TUBE PO ×2 (10:30)
[2018-12-25 11:44] LABS: PHOSPHORUS 3.5 mg/dl (2.5-4.9)
[2018-12-25] MEDS: ALBUTEROL HFA 8 GM INHALER INH ×2 (13:09→20:35)
[2018-12-25] MEDS: INSULIN ASPART [NOVOLOG] 3 ML PEN SC ×3 (13:10→20:33)
[2018-12-25] MEDS: TAMSULOSIN (SR) 0.4 MG CAP PO (20:34)
[2018-12-25] MEDS: METOPROLOL 50 MG TAB PO (20:34)
[2018-12-26] MEDS: ALBUTEROL HFA 8 GM INHALER INH ×3 (01:12→15:02)
[2018-12-26] MEDS: ACCU-CHEK XX (01:17)
[2018-12-26] MEDS: INSULIN ASPART [NOVOLOG] 3 ML PEN SC ×3 (07:50→17:55)
[2018-12-26] MEDS: predniSONE 20 MG TAB PO (08:36)
[2018-12-26] MEDS: LOSARTAN 25 MG TAB PO (08:36)
[2018-12-26] MEDS: FLUTICASONE/VILANTEROL 100-25 INH (08:37)
[2018-12-26] MEDS: METOPROLOL 50 MG TAB PO (08:37)
[2018-12-26] MEDS: GUAIFENESIN 20 MG/ML 5ML CUP PO ×2 (11:10→15:04)
[2018-12-26 11:29] LABS: ADD MAN DIFF? NO
[2018-12-26 11:30] LABS: BASOPHILS % 0.1 % (0.0-2.0); EOSINOPHILS % 0.1 % (0.0-7.0); HEMATOCRIT 44.8 % (42.0-52.0); HEMOGLOBIN 14.7 g/dl (14.0-18.0); LYMPHOCYTES # 1.2 10^3/ul (0.8-2.9); LYMPHOCYTES % 8.6 % (15.0-51.0); MEAN CORPUSCULAR HEMOGLOBIN 29.5 pg (29.0-33.0); MEAN CORPUSCULAR HGB CONC 32.8 g/dl (32.0-37.0); MEAN CORPUSCULAR VOLUME 89.8 fl (82.0-101.0); MONOCYTE # 0.9 10^3/ul (0.3-0.9); MONOCYTES % 6.4 % (0.0-11.0); NEUTROPHIL # 12.1 10^3/ul (1.6-7.5); NEUTROPHILS % 83.8 % (39.0-77.0); PLATELET COUNT 217 10^3/UL (140-415); RED BLOOD COUNT 4.99 10^6/ul (4.70-6.10); RED CELL DISTRIBUTION WIDTH 14.7 % (11.5-14.5)
[2018-12-26 11:30] LABS: WHITE BLOOD COUNT 14.4 10^3/ul (4.8-10.8)
[2018-12-26 11:57] LABS: ALANINE AMINOTRANSFERASE 20 IU/L (13-69); ALBUMIN 3.2 g/dl (3.3-4.9); ALBUMIN/GLOBULIN RATIO 1.14; ALKALINE PHOSPHATASE 54 IU/L (42-121); ANION GAP 8 (5-13); ASPARTATE AMINO TRANSFERASE 22 IU/L (15-46); BILIRUBIN,INDIRECT 0.7 mg/dl (0-1.1); BILIRUBIN,TOTAL 0.7 mg/dl (0.2-1.3); BLOOD UREA NITROGEN 33 mg/dl (7-20); CALCIUM 9.4 mg/dl (8.4-10.2); CARBON DIOXIDE 25 mmol/L (21-31); CHLORIDE 105 mmol/L (97-110); CREATININE 1.27 mg/dl (0.61-1.24); GLUCOSE 92 mg/dl (70-220); MAGNESIUM 1.9 mg/dl (1.7-2.5); POTASSIUM 3.6 mmol/L (3.5-5.1); SODIUM 138 mmol/L (135-144)
== END 2018-12-26 19:15 | disposition home or self-care (01) ==
LOC: MS1 08:23
PROVIDERS: Family Medicine
DX: J20.8 Acute bronchitis due to other specified organisms (principal); N40.0 Benign prostatic hyperplasia without lower urinary tract symptoms; I10 Essential (primary) hypertension; M81.0 Age-related osteoporosis without current pathological fracture
CPT/HCPCS: 71045; 80053; 82962; 83735; 84100; 85025; 99217

== ENCOUNTER 2018-12-27 19:45 | Inpatient (IN) | payer OTHER ==
[2018-12-27] MEDS ORDERED: ACETAMINOPHEN 325 MG TAB PO (22:30)
[2018-12-27] MEDS ORDERED: NACL 0.9% 3 ML SYG IV (22:30)
[2018-12-27] MEDS ORDERED: ONDANSETRON 4 MG INJ IV (22:30)
[2018-12-27] MEDS ORDERED: BISACODYL (EC) 5 MG TAB PO (22:30)
[2018-12-27 22:42] LABS: ADD MAN DIFF? NO
[2018-12-27 22:44] LABS: BASOPHILS % 0.2 % (0.0-2.0); EOSINOPHILS % 0.2 % (0.0-7.0); HEMATOCRIT 44.2 % (42.0-52.0); HEMOGLOBIN 14.5 g/dl (14.0-18.0); LYMPHOCYTES # 1.9 10^3/ul (0.8-2.9); LYMPHOCYTES % 14.4 % (15.0-51.0); MEAN CORPUSCULAR HEMOGLOBIN 29.4 pg (29.0-33.0); MEAN CORPUSCULAR HGB CONC 32.8 g/dl (32.0-37.0); MEAN CORPUSCULAR VOLUME 89.5 fl (82.0-101.0); MEAN PLATELET VOLUME 12.3 fl (7.4-10.4); MONOCYTES % 7.9 % (0.0-11.0); NEUTROPHIL # 9.8 10^3/ul (1.6-7.5); NEUTROPHILS % 76.2 % (39.0-77.0); PLATELET COUNT 206 10^3/UL (140-415); RED BLOOD COUNT 4.94 10^6/ul (4.70-6.10); RED CELL DISTRIBUTION WIDTH 14.7 % (11.5-14.5)
[2018-12-27 22:44] LABS: WHITE BLOOD COUNT 12.8 10^3/ul (4.8-10.8)
[2018-12-27 23:01] LABS: ALANINE AMINOTRANSFERASE 31 IU/L (13-69); ALBUMIN 3.1 g/dl (3.3-4.9); ALBUMIN/GLOBULIN RATIO 1.03; ALKALINE PHOSPHATASE 75 IU/L (42-121); ANION GAP 9 (5-13); ASPARTATE AMINO TRANSFERASE 19 IU/L (15-46); BILIRUBIN,INDIRECT 0.7 mg/dl (0-1.1); BILIRUBIN,TOTAL 0.7 mg/dl (0.2-1.3); BLOOD UREA NITROGEN 42 mg/dl (7-20); CALCIUM 8.7 mg/dl (8.4-10.2); CARBON DIOXIDE 24 mmol/L (21-31); CHLORIDE 104 mmol/L (97-110); CREATININE 1.35 mg/dl (0.61-1.24); GLUCOSE 161 mg/dl (70-220); POTASSIUM 3.5 mmol/L (3.5-5.1); SODIUM 137 mmol/L (135-144); TOTAL PROTEIN 6.1 g/dl (6.1-8.1)
[2018-12-28 05:54] LABS: ADD MAN DIFF? NO
[2018-12-28 06:01] LABS: WHITE BLOOD COUNT 11.5 10^3/ul (4.8-10.8)
[2018-12-28 06:01] LABS: BASOPHILS % 0.2 % (0.0-2.0); EOSINOPHILS # 0.1 10^3/ul (0.0-0.5); EOSINOPHILS % 0.4 % (0.0-7.0); HEMATOCRIT 45.5 % (42.0-52.0); HEMOGLOBIN 14.9 g/dl (14.0-18.0); LYMPHOCYTES # 3.5 10^3/ul (0.8-2.9); LYMPHOCYTES % 30.3 % (15.0-51.0); MEAN CORPUSCULAR HEMOGLOBIN 29.4 pg (29.0-33.0); MEAN CORPUSCULAR HGB CONC 32.7 g/dl (32.0-37.0); MEAN CORPUSCULAR VOLUME 89.9 fl (82.0-101.0); MEAN PLATELET VOLUME 12.3 fl (7.4-10.4); MONOCYTE # 1.1 10^3/ul (0.3-0.9); MONOCYTES % 9.2 % (0.0-11.0); NEUTROPHIL # 6.8 10^3/ul (1.6-7.5); NEUTROPHILS % 59.1 % (39.0-77.0); PLATELET COUNT 214 10^3/UL (140-415); RED BLOOD COUNT 5.06 10^6/ul (4.70-6.10)
[2018-12-28 06:31] LABS: ALANINE AMINOTRANSFERASE 26 IU/L (13-69); ALBUMIN 3.1 g/dl (3.3-4.9); ALBUMIN/GLOBULIN RATIO 0.93; ALKALINE PHOSPHATASE 67 IU/L (42-121); ANION GAP 7 (5-13); ASPARTATE AMINO TRANSFERASE 17 IU/L (15-46); BILIRUBIN,INDIRECT 1.2 mg/dl (0-1.1); BILIRUBIN,TOTAL 1.2 mg/dl (0.2-1.3); BLOOD UREA NITROGEN 37 mg/dl (7-20); CALCIUM 8.8 mg/dl (8.4-10.2); CARBON DIOXIDE 28 mmol/L (21-31); CHLORIDE 105 mmol/L (97-110); CHOL/HDL RATIO 2.7 RATIO; CHOLESTEROL 119 mg/dl (100-200); CREATININE 1.45 mg/dl (0.61-1.24); GLUCOSE 83 mg/dl (70-220); HDL CHOLESTEROL 44 mg/dl (31-75); LDL CHOLESTEROL,CALCULATED 56 mg/dl; MAGNESIUM 1.9 mg/dl (1.7-2.5); POTASSIUM 3.5 mmol/L (3.5-5.1); SODIUM 140 mmol/L (135-144); TOTAL PROTEIN 6.4 g/dl (6.1-8.1); TRIGLYCERIDES 93 mg/dl (0-149)
[2018-12-28 06:43] LABS: HEMOGLOBIN A1C 5.4 % (0-5.9)
[2018-12-28 07:05] LABS: CREATINE KINASE 24 IU/L (23-200)
[2018-12-28 07:17] LABS: CK INDEX 4.7; CK-MB 1.13 ng/ml (0.0-2.4); TROPONIN-I 0.015 ng/ml (0.000-0.120)
[2018-12-28] MEDS: SOD CHLORIDE 0.9% 500 ML IV (07:58)
[2018-12-28] MEDS ORDERED: ALBUTEROL HFA 8 GM INHALER INH ×2 (08:00)
[2018-12-28] MEDS: METOPROLOL 50 MG TAB PO ×2 (09:12→22:21)
[2018-12-28] MEDS: predniSONE 5 MG TAB PO (09:13)
[2018-12-28] MEDS: MONTELUKAST 10 MG TAB PO ×2 (11:54→22:20)
[2018-12-28] MEDS: FINASTERIDE 5 MG TAB PO (12:25)
[2018-12-28] MEDS: FLUTICASONE/VILANTEROL 100-25 INH (12:26)
[2018-12-28 12:47] LABS: CREATINE KINASE 23 IU/L (23-200)
[2018-12-28 12:56] LABS: CK INDEX 4.2; CK-MB 0.96 ng/ml (0.0-2.4)
[2018-12-28 13:00] LABS: TROPONIN-I < 0.012 ng/ml (0.000-0.120)
[2018-12-28] MEDS: APIXABAN 5 MG TABLET PO ×2 (16:00→22:20)
[2018-12-29 05:57] LABS: ADD MAN DIFF? NO
[2018-12-29 06:02] LABS: WHITE BLOOD COUNT 10.2 10^3/ul (4.8-10.8)
[2018-12-29 06:02] LABS: BASOPHILS % 0.2 % (0.0-2.0); EOSINOPHILS # 0.1 10^3/ul (0.0-0.5); EOSINOPHILS % 0.7 % (0.0-7.0); HEMATOCRIT 41.7 % (42.0-52.0); HEMOGLOBIN 13.7 g/dl (14.0-18.0); LYMPHOCYTES # 2.9 10^3/ul (0.8-2.9); LYMPHOCYTES % 28.5 % (15.0-51.0); MEAN CORPUSCULAR HEMOGLOBIN 29.8 pg (29.0-33.0); MEAN CORPUSCULAR HGB CONC 32.9 g/dl (32.0-37.0); MEAN CORPUSCULAR VOLUME 90.7 fl (82.0-101.0); MEAN PLATELET VOLUME 12.4 fl (7.4-10.4); MONOCYTES % 9.9 % (0.0-11.0); NEUTROPHIL # 6.1 10^3/ul (1.6-7.5); NEUTROPHILS % 59.8 % (39.0-77.0); PLATELET COUNT 201 10^3/UL (140-415); RED CELL DISTRIBUTION WIDTH 14.9 % (11.5-14.5)
[2018-12-29 06:47] LABS: ALANINE AMINOTRANSFERASE 20 IU/L (13-69); ALBUMIN 2.7 g/dl (3.3-4.9); ALKALINE PHOSPHATASE 49 IU/L (42-121); ANION GAP 5 (5-13); ASPARTATE AMINO TRANSFERASE 16 IU/L (15-46); BILIRUBIN,INDIRECT 1.2 mg/dl (0-1.1); BILIRUBIN,TOTAL 1.2 mg/dl (0.2-1.3); BLOOD UREA NITROGEN 33 mg/dl (7-20); CALCIUM 8.7 mg/dl (8.4-10.2); CARBON DIOXIDE 27 mmol/L (21-31); CHLORIDE 108 mmol/L (97-110); CREATININE 1.33 mg/dl (0.61-1.24); GLUCOSE 80 mg/dl (70-220); SODIUM 140 mmol/L (135-144); TOTAL PROTEIN 5.4 g/dl (6.1-8.1)
[2018-12-29] MEDS: FLUTICASONE/VILANTEROL 100-25 INH (08:28)
[2018-12-29] MEDS: FINASTERIDE 5 MG TAB PO (08:29)
[2018-12-29] MEDS: APIXABAN 5 MG TABLET PO ×2 (08:29→20:19)
[2018-12-29] MEDS: predniSONE 5 MG TAB PO (08:29)
[2018-12-29] MEDS: METOPROLOL 50 MG TAB PO (08:29)
[2018-12-29] MEDS: MONTELUKAST 10 MG TAB PO (20:19)
[2018-12-29] MEDS: METOPROLOL 100 MG TAB PO (20:19)
[2018-12-30 05:37] LABS: ADD MAN DIFF? NO
[2018-12-30 05:47] LABS: WHITE BLOOD COUNT 11.4 10^3/ul (4.8-10.8)
[2018-12-30 05:47] LABS: BASOPHILS % 0.2 % (0.0-2.0); EOSINOPHILS # 0.1 10^3/ul (0.0-0.5); EOSINOPHILS % 0.6 % (0.0-7.0); HEMATOCRIT 43.2 % (42.0-52.0); HEMOGLOBIN 14.2 g/dl (14.0-18.0); LYMPHOCYTES # 3.5 10^3/ul (0.8-2.9); MEAN CORPUSCULAR HEMOGLOBIN 29.5 pg (29.0-33.0); MEAN CORPUSCULAR HGB CONC 32.9 g/dl (32.0-37.0); MEAN CORPUSCULAR VOLUME 89.8 fl (82.0-101.0); MEAN PLATELET VOLUME 12.2 fl (7.4-10.4); MONOCYTES % 8.5 % (0.0-11.0); NEUTROPHIL # 6.7 10^3/ul (1.6-7.5); NEUTROPHILS % 58.7 % (39.0-77.0); PLATELET COUNT 201 10^3/UL (140-415); RED BLOOD COUNT 4.81 10^6/ul (4.70-6.10); RED CELL DISTRIBUTION WIDTH 14.9 % (11.5-14.5)
[2018-12-30 07:00] LABS: ALANINE AMINOTRANSFERASE 20 IU/L (13-69); ALBUMIN 2.8 g/dl (3.3-4.9); ALKALINE PHOSPHATASE 54 IU/L (42-121); ANION GAP 9 (5-13); ASPARTATE AMINO TRANSFERASE 14 IU/L (15-46); BILIRUBIN,INDIRECT 1.2 mg/dl (0-1.1); BILIRUBIN,TOTAL 1.2 mg/dl (0.2-1.3); BLOOD UREA NITROGEN 37 mg/dl (7-20); CALCIUM 8.8 mg/dl (8.4-10.2); CARBON DIOXIDE 26 mmol/L (21-31); CHLORIDE 107 mmol/L (97-110); GLUCOSE 82 mg/dl (70-220); POTASSIUM 3.5 mmol/L (3.5-5.1); SODIUM 142 mmol/L (135-144); TOTAL PROTEIN 5.6 g/dl (6.1-8.1)
[2018-12-30] MEDS: APIXABAN 5 MG TABLET PO ×2 (08:19→20:32)
[2018-12-30] MEDS: FLUTICASONE/VILANTEROL 100-25 INH (08:19)
[2018-12-30] MEDS: FINASTERIDE 5 MG TAB PO (08:19)
[2018-12-30] MEDS: predniSONE 5 MG TAB PO (08:19)
[2018-12-30] MEDS: METOPROLOL 100 MG TAB PO ×2 (08:24→20:33)
[2018-12-30] MEDS: METOPROLOL 50 MG TAB PO ×2 (08:45→20:33)
[2018-12-30] MEDS: MONTELUKAST 10 MG TAB PO (20:32)
[2018-12-31 05:23] LABS: ADD MAN DIFF? NO
[2018-12-31 05:24] LABS: BASOPHILS % 0.4 % (0.0-2.0); EOSINOPHILS # 0.1 10^3/ul (0.0-0.5); EOSINOPHILS % 0.9 % (0.0-7.0); HEMATOCRIT 41.8 % (42.0-52.0); HEMOGLOBIN 13.7 g/dl (14.0-18.0); LYMPHOCYTES # 3.4 10^3/ul (0.8-2.9); MEAN CORPUSCULAR HEMOGLOBIN 29.8 pg (29.0-33.0); MEAN CORPUSCULAR HGB CONC 32.8 g/dl (32.0-37.0); MEAN CORPUSCULAR VOLUME 90.9 fl (82.0-101.0); MEAN PLATELET VOLUME 12.3 fl (7.4-10.4); MONOCYTE # 0.9 10^3/ul (0.3-0.9); MONOCYTES % 8.9 % (0.0-11.0); NEUTROPHILS % 56.6 % (39.0-77.0); PLATELET COUNT 216 10^3/UL (140-415)
[2018-12-31 05:24] LABS: WHITE BLOOD COUNT 10.5 10^3/ul (4.8-10.8)
[2018-12-31 05:52] LABS: ALANINE AMINOTRANSFERASE 16 IU/L (13-69); ALBUMIN 2.9 g/dl (3.3-4.9); ALBUMIN/GLOBULIN RATIO 1.03; ALKALINE PHOSPHATASE 54 IU/L (42-121); ANION GAP 10 (5-13); ASPARTATE AMINO TRANSFERASE 15 IU/L (15-46); BILIRUBIN,INDIRECT 1.1 mg/dl (0-1.1); BILIRUBIN,TOTAL 1.1 mg/dl (0.2-1.3); BLOOD UREA NITROGEN 33 mg/dl (7-20); CALCIUM 8.9 mg/dl (8.4-10.2); CARBON DIOXIDE 25 mmol/L (21-31); CHLORIDE 107 mmol/L (97-110); CREATININE 1.31 mg/dl (0.61-1.24); GLUCOSE 81 mg/dl (70-220); POTASSIUM 3.6 mmol/L (3.5-5.1); SODIUM 142 mmol/L (135-144); TOTAL PROTEIN 5.7 g/dl (6.1-8.1)
[2018-12-31] MEDS: FLUTICASONE/VILANTEROL 100-25 INH (08:08)
[2018-12-31] MEDS: FINASTERIDE 5 MG TAB PO (08:08)
[2018-12-31] MEDS: predniSONE 5 MG TAB PO (08:08)
[2018-12-31] MEDS: APIXABAN 5 MG TABLET PO (08:08)
[2018-12-31] MEDS: METOPROLOL 50 MG TAB PO (08:10)
[2018-12-31] MEDS: DOCUSATE SODIUM 100 MG CAP PO (08:20)
== END 2018-12-31 17:40 | disposition home or self-care (01) | DRG 310 ==
LOC: 6WM 19:45
DX: I48.0 Paroxysmal atrial fibrillation (principal); E88.81 Metabolic syndrome and other insulin resistance; I12.9 Hypertensive chronic kidney disease with stage 1 through stage 4 chronic kidney disease, or unspecified chronic kidney disease; J45.40 Moderate persistent asthma, uncomplicated; N40.0 Benign prostatic hyperplasia without lower urinary tract symptoms; E78.5 Hyperlipidemia, unspecified; M81.0 Age-related osteoporosis without current pathological fracture; N18.2 Chronic kidney disease, stage 2 (mild); R55 Syncope and collapse
CPT/HCPCS: 70450; 80053; 80061; 82306; 82550; 82553; 83036; 83735; 84443; 84484; 85025; 87081; 93306; 93880; 99217; G0378